=== PATIENT | female | born 1985 | race Caucasian/White ===

== ENCOUNTER 2016-09-24 09:19 | Emergency (ER) | payer MEDICARE, OTHER ==
[~2016-09-24 09:19] MED LIST: AMOXICILLIN PO; ARAVA10 MG PO; BENLYSTA120 MG IV; CELEXA PO; CYMBALTA30 MG PO; ERYC250 MG PO; ERYTHROMYCIN O3.5 GM OS; FOLIC ACID PO; HYDROCODON-ACE1 EAC5 PO; HYDROXYZINE HCL25 M1 PO; IBUPROFEN PO; IBUPROFEN800 MG PO; K-DUR20 ME1 PO; KEFLEX PO; KETOPROFEN PO; LEVAQUIN PO; LORTAB 7.51 TAB 7.5/ PO; METHOTREXATE2.5 MG PO; NORCO 10-325 TA1 TAB PO; NORCO 10/3251 TAB PO; ORAPRED ODT30 MG PO; PHENERGAN25 MG PO; PLAQUENIL200 MG PO; PREDNISONE PO; PREDNISONE1 MG PO; PREDNISONE10 MG PO; PRENATAL VITAMI1 TA3 PO; ROBAXIN500 MG; SIMPONI AR50 MG/4 ML IV; TAGAMET PO; TEMOVATE 0.05%15 GM EXT; TESSALON200 MG PO; TRIAMCINOLONE A15 G2 EXT; TYLENOL #3; TYLOX 5/500 CAP1 CAP PO; VICODIN 5/500 T1 TAB PO; VOLTAREN75 MG PO; XELJANZ5 MG PO; ZITHROMAX1 G/PKT PO; ZOFRAN ODT4 MG PO
== END 2016-09-24 10:48 | disposition home or self-care (01) ==
LOC: CFTX 09:19 → CED 09:19 → CFTX 10:46
DX: H60.92 Unspecified otitis externa, left ear (principal); L93.0 Discoid lupus erythematosus; Z88.0 Allergy status to penicillin; Z88.8 Allergy status to other drugs, medicaments and biological substances
CPT/HCPCS: 99282

== ENCOUNTER 2016-10-13 22:36 | Emergency (ER) | payer MEDICARE, OTHER ==
[2016-10-14 00:16] LABS: URINE SOURCE CLEAN CATCH
[2016-10-14 00:19] LABS: URINE APPEARANCE CLEAR; URINE BILIRUBIN NEG (NEG); URINE BLOOD NEG (NEG); URINE COLOR YELLOW; URINE GLUCOSE NEG (NEG); URINE KETONE NEG (NEG); URINE LEUKOCYTE ESTERASE NEG (NEG); URINE NITRATE NEG (NEG); URINE PH 5.5 (5-8); URINE PROTEIN NEG (NEG); URINE SPECIFIC GRAVITY 1.017 (1.003-1.035); URINE UROBILINOGEN 0.2 MG/DL (NEG)
[2016-10-14 00:23] LABS: CULTURE INDICATED? NO
[2016-10-14 00:29] LABS: BASOPHIL% 0.5 % (0-2.5); EOSINOPHIL% 0.2 % (0.0-7.0); HEMATOCRIT 35.8 % (35.0-45.0); LYMPHOCYTE# 1.6 X10e3 (1.0-3.5); LYMPHOCYTE% 18.8 % (17.0-45.0); MEAN CELL VOLUME 88.2 FL (83-96); MEAN CORPUSCULAR HEMOGLOBIN 29.4 PG (28-34); MEAN CORPUSCULAR HGB CONC 33.4 g/dL (30-36); MEAN PLATELET VOLUME 7.4 FL (6.5-11.5); MONOCYTE# 0.3 X10e3 (0-1.0); NEUTROPHIL# 6.6 X10e3 (1.5-7.1); NEUTROPHIL% 76.5 % (40-75); PLATELET COUNT 265 X10e3 (140-420); RED BLOOD COUNT 4.06 X10e (3.90-5.30); RED CELL DISTRIBUTION WIDTH 16.2 % (11.0-15.5); WHITE BLOOD COUNT 8.7 X10e3 (4.0-10.5)
[2016-10-14 00:30] LABS: DIFF IND NO
[2016-10-14 00:50] LABS: BUN/CREATININE RATIO 16.36; CALCIUM SERUM 8.7 mg/dL (8.4-10.2); CREATININE SERUM 1.1 mg/dL (0.6-1.4); GLOM FILT RATE Estimated 67.8 mL/min (>60); POTASSIUM 3.1 mmol/L (3.5-5.1)
== END 2016-10-14 01:20 | disposition home or self-care (01) ==
LOC: CED 22:36
PROVIDERS: Emergency Medicine
DX: M32.9 Systemic lupus erythematosus, unspecified (principal); R21 Rash and other nonspecific skin eruption; F17.210 Nicotine dependence, cigarettes, uncomplicated; Z88.0 Allergy status to penicillin; Z88.8 Allergy status to other drugs, medicaments and biological substances
CPT/HCPCS: 36415; 80048; 81003; 85025; 99283